=== PATIENT | male | born 1955 | race Two or more races ===

== ENCOUNTER 2023-01-30 04:10 | Day surgery (SDC) | payer OTHER ==
[2023-01-24 13:30] VITALS: BMI 29.6
[~2023-01-30 04:10] MED LIST: ACETAMINOPHEN 500 MG TABLET (FP) PO PRN
[2023-01-30] MEDS ORDERED: BUPIVACAINE HCL/PF 0.5% (5MG/ML) 10 ML VIAL NR ONE ×2 (13:04→13:06)
[2023-01-30 14:31] VITALS: BP 124/70; PULSE 72; RESP 17; TEMP 98.7
[2023-01-30] MEDS ORDERED: ACETAMINOPHEN 500 MG TABLET (FP) PO PRN (15:54)
== END 2023-01-30 13:50 | disposition home or self-care (01) ==
LOC: JASU-SURG 04:10
PROVIDERS: ATTEND Pain Medicine Pain Medicine
PROC: BR14YZZ Fluoroscopy of Cervical Facet Joint(s) using Other Contrast (ICD-10-PCS; 2023-01-30)
PROC: 3E0T3BZ Introduction of Anesthetic Agent into Peripheral Nerves and Plexi, Percutaneous Approach (ICD-10-PCS; principal; 2023-01-30 13:00)
DX: M47.812 Spondylosis without myelopathy or radiculopathy, cervical region (principal)
CPT/HCPCS: 76000-TC-FY

== ENCOUNTER 2023-02-23 03:54 | Day surgery (SDC) | payer OTHER ==
[2023-02-21 12:07] VITALS: BMI 29.6
[~2023-02-23 03:54] MED LIST changes: +LIDOCAINE HCL 1% PRESERVATIVE FREE - 30ML VIAL IJ ONE
[2023-02-23] MEDS ORDERED: LIDOCAINE HCL/PF 2% SDV 5ML VIAL ONE (07:14)
[2023-02-23] MEDS ORDERED: BUPIVACAINE HCL/PF 0.5% (5MG/ML) 10 ML VIAL ONE (07:17)
[2023-02-23] MEDS ORDERED: LIDOCAINE HCL/PF 1% SDV 5ML VIAL ONE (07:17)
[2023-02-23] MEDS ORDERED: LIDOCAINE HCL 1% PRESERVATIVE FREE - 30ML VIAL IJ ONE ×2 (08:15)
[2023-02-23 09:50] VITALS: BP 121/73; PULSE 70; RESP 17; TEMP 97.9
== END 2023-02-23 09:30 | disposition home or self-care (01) ==
LOC: JASU-SURG 03:54
PROVIDERS: ATTEND Pain Medicine Pain Medicine
PROC: 01HY3MZ Insertion of Neurostimulator Lead into Peripheral Nerve, Percutaneous Approach (ICD-10-PCS; principal; 2023-02-23 08:00)
DX: G89.4 Chronic pain syndrome (principal); M54.2 Cervicalgia
CPT/HCPCS: 64555; C1778; 76000-TC-FY

== ENCOUNTER 2023-03-27 04:13 | Day surgery (SDC) | payer OTHER ==
[2023-03-21 14:22] VITALS: BMI 29.5
[~2023-03-27 04:13] MED LIST changes: -ACETAMINOPHEN 500 MG TABLET (FP) PO PRN; -LIDOCAINE HCL 1% PRESERVATIVE FREE - 30ML VIAL IJ ONE; +LIDOCAINE HCL 1% PRESERVATIVE FREE - 30ML VIAL INF ONE
[2023-03-27] MEDS ORDERED: LIDOCAINE HCL/PF 1% SDV 5ML VIAL ONE (07:31)
[2023-03-27] MEDS ORDERED: LIDOCAINE HCL/PF 2% SDV 5ML VIAL ONE (07:43)
[2023-03-27] MEDS ORDERED: LIDOCAINE HCL 1% PRESERVATIVE FREE - 30ML VIAL INF ONE (09:41)
[2023-03-27 10:24] VITALS: RESP 18; TEMP 98.3
[2023-03-27 11:14] VITALS: BP 112/69; PULSE 73
[2023-03-27] MEDS ORDERED: ACETAMINOPHEN 500 MG TABLET (FP) PO PRN (13:11)
== END 2023-03-27 10:55 | disposition home or self-care (01) ==
LOC: JASU-SURG 04:13
PROVIDERS: ATTEND Pain Medicine Pain Medicine
PROC: 01HY3MZ Insertion of Neurostimulator Lead into Peripheral Nerve, Percutaneous Approach (ICD-10-PCS; principal; 2023-03-27 10:30)
DX: G89.4 Chronic pain syndrome (principal); M54.2 Cervicalgia
CPT/HCPCS: 64555; C1778; 76000-TC-FY

== ENCOUNTER 2023-04-28 06:15 | Inpatient (IN) | payer OTHER ==
[2023-04-28] MEDS ORDERED: SODIUM CHLORIDE 0.9% 500 ML INFUS.BAG IV ONE (07:26)
[2023-04-28 07:53] LABS: HEMATOCRIT 35.4 % (35.4-49); HEMOGLOBIN 11.2 GM/dL (11.7-16.9); MCH 28.1 pg (25.7-33.7); MCHC 31.6 g/dl (32.0-35.9); MEAN PLT VOLUME 8.3 fl (7.5-11.1); PLATELET COUNT 308 10^3/uL (134-434); RBC 3.98 M/mm3 (4.00-5.60); RDW 15.7 % (11.9-15.9); WHITE BLOOD COUNT 5.5 K/mm3 (4.0-10.0)
[2023-04-28 08:11] LABS: POTASSIUM 5.2 mmol/L (3.5-5.1)
[2023-04-28 08:12] LABS: INR 1.26 (0.83-1.09); PROTHROMBIN TIME (PATIENT) 14.6 SEC (9.7-13.0)
[2023-04-28 08:13] LABS: CALCIUM 8.7 mg/dL (8.5-10.1)
[2023-04-28 08:15] LABS: ACTIVATED PTT 28.7 SECONDS (25.2-36.5); ALBUMIN 3.4 g/dl (3.4-5.0); BLOOD UREA NITROGEN 77.1 mg/dL (7-18); VENOUS BASE EXCESS -9.5 mmol/L (-2-2); VENOUS O2 SATURATION 20.8 % (70-80); VENOUS PCO2 48.3 mmHg (38-52); VENOUS PH 7.205 (7.310-7.410)
[2023-04-28 08:17] LABS: CREATININE 4.1 mg/dL (0.55-1.3)
[2023-04-28 08:18] LABS: BILIRUBIN,TOTAL 0.6 mg/dL (0.2-1)
[2023-04-28 08:19] LABS: TOT PROT 6.5 g/dl (6.4-8.2)
[2023-04-28] MEDS ORDERED: CEFTRIAXONE 1,000 MG in DEXTROSE 5%-WATER - 50 ML IVPB ONE (08:51)
[2023-04-28 08:59] LABS: ANISOCYTOSIS 0; MACROCYTOSIS 0
[2023-04-28] MEDS ORDERED: CEFTRIAXONE 1 GM/50 ML BAG ONE (08:59)
[2023-04-28 09:01] LABS: EPI CELLS 30 /uL (0-25.1); HYALINE CASTS 8 /uL (0-3.1); PH,URINE 5.5 (5.0-8.0); URINE APPEARANCE TURBID; URINE BACTERIA >9,000 /uL (0-1359); URINE BILIRUBIN 1+ (NEGATIVE); URINE COLOR DK YELLOW; URINE GLUCOSE (UA) NEGATIVE (NEGATIVE); URINE KETONE NEGATIVE (NEGATIVE); URINE LEUK ESTERASE 3+ (NEGATIVE); URINE NITRITE POSITIVE (NEGATIVE); URINE PROTEIN 3+ (NEGATIVE); URINE WBC 32874 /uL (0-25.8)
[2023-04-28 10:47] LABS: URINE RBC 1102.7 /uL (0-23.9); YEAST NEGATIVE (NEGATIVE)
[2023-04-28 11:07] VITALS: BMI 31.5
[2023-04-28] MEDS ORDERED: INSULIN (NOVOLOG) ASPART 100 UNITS/ML 10ML VIAL ONE (12:48)
[2023-04-28] MEDS: SODIUM CHLORIDE 1,000 ML IV SCH (15:39)
[2023-04-28] MEDS: hydrALAZINE HCL 50 MG TABLET (FP) PO SCH (21:44)
[2023-04-28] MEDS: ROSUVASTATIN CA 10 MG TABLET PO SCH (21:44)
[2023-04-28] MEDS: NIFEdipine E.R 60 MG TABLET PO SCH (21:44)
[2023-04-28] MEDS: GABAPENTIN 300 MG CAPSULE PO SCH (21:44)
[2023-04-28] MEDS: HEPARIN NA (PORCINE) 5,000 UNITS/ML 1ML VIAL SQ SCH (21:45)
[2023-04-28] MEDS ORDERED: buPROPion HCL 100 MG TABLET PO SCH (22:00)
[2023-04-28] MEDS: MELATONIN 5 MG TABLETS PO PRN (23:20)
[2023-04-29] MEDS: hydrALAZINE HCL 50 MG TABLET (FP) PO SCH ×3 (06:21→22:28)
[2023-04-29] MEDS: GABAPENTIN 300 MG CAPSULE PO SCH ×3 (06:21→22:27)
[2023-04-29] MEDS ORDERED: TENOFOVIR DISOPROXIL FUMARATE 300 MG TABLET PO SCH (08:00)
[2023-04-29 08:59] LABS: HEMATOCRIT 31.5 % (35.4-49); HEMOGLOBIN 10.1 GM/dL (11.7-16.9); MCH 28.4 pg (25.7-33.7); MCHC 32.1 g/dl (32.0-35.9); MEAN CELL VOLUME 88.5 fl (80-96); MEAN PLT VOLUME 8.7 fl (7.5-11.1); PLATELET COUNT 257 10^3/uL (134-434); RBC 3.56 M/mm3 (4.00-5.60); RDW 15.6 % (11.9-15.9); WHITE BLOOD COUNT 4.7 K/mm3 (4.0-10.0)
[2023-04-29 09:12] LABS: POTASSIUM 4.9 mmol/L (3.5-5.1)
[2023-04-29 09:17] LABS: BLOOD UREA NITROGEN 60.8 mg/dL (7-18); CALCIUM 8.5 mg/dL (8.5-10.1)
[2023-04-29 09:18] LABS: ALBUMIN 3.2 g/dl (3.4-5.0)
[2023-04-29 09:21] LABS: CREATININE 2.6 mg/dL (0.55-1.3)
[2023-04-29 09:22] LABS: BILIRUBIN,TOTAL 0.4 mg/dL (0.2-1); TOT PROT 5.8 g/dl (6.4-8.2)
[2023-04-29] MEDS: ASPIRIN 81 MG CHEWABLE TABLETS PO SCH (09:58)
[2023-04-29] MEDS: buPROPion HCL 100 MG TABLET PO SCH (09:59)
[2023-04-29] MEDS: NEBIVOLOL 10 MG TABLET (FP) PO SCH (09:59)
[2023-04-29] MEDS: CEFTRIAXONE 1 GM in DEXTROSE 5%-WATER - 50 ML IVPB SCH (09:59)
[2023-04-29] MEDS: HEPARIN NA (PORCINE) 5,000 UNITS/ML 1ML VIAL SQ SCH ×2 (10:00→22:27)
[2023-04-29] MEDS ORDERED: POTASSIUM CHLORIDE TABS 20 MEQ TABLET.ER (FP) PO SCH (10:00)
[2023-04-29] MEDS ORDERED: IRBESARTAN 300 MG PO SCH (10:00)
[2023-04-29] MEDS: NIFEdipine E.R. 30 MG TABLET PO SCH (10:06)
[2023-04-29 10:14] LABS: ANISOCYTOSIS 0; MACROCYTOSIS 0
[2023-04-29] MEDS: ROSUVASTATIN CA 10 MG TABLET PO SCH (22:27)
[2023-04-29] MEDS: NIFEdipine E.R 60 MG TABLET PO SCH (22:28)
[2023-04-29] MEDS: MELATONIN 5 MG TABLETS PO PRN (22:53)
[2023-04-30] MEDS: SODIUM CHLORIDE 1,000 ML IV SCH (02:33)
[2023-04-30] MEDS: hydrALAZINE HCL 50 MG TABLET (FP) PO SCH ×3 (05:48→22:02)
[2023-04-30] MEDS: GABAPENTIN 300 MG CAPSULE PO SCH ×3 (05:49→22:02)
[2023-04-30 09:01] LABS: HEMATOCRIT 31.1 % (35.4-49); HEMOGLOBIN 9.9 GM/dL (11.7-16.9); MCH 28.5 pg (25.7-33.7); MCHC 31.7 g/dl (32.0-35.9); MEAN CELL VOLUME 90.1 fl (80-96); MEAN PLT VOLUME 8.7 fl (7.5-11.1); PLATELET COUNT 254 10^3/uL (134-434); RBC 3.46 M/mm3 (4.00-5.60); RDW 15.3 % (11.9-15.9); WHITE BLOOD COUNT 4.8 K/mm3 (4.0-10.0)
[2023-04-30 09:18] LABS: CALCIUM 8.5 mg/dL (8.5-10.1)
[2023-04-30 09:19] LABS: ALBUMIN 2.8 g/dl (3.4-5.0); BLOOD UREA NITROGEN 47.1 mg/dL (7-18)
[2023-04-30 09:24] LABS: BILIRUBIN,TOTAL 0.5 mg/dL (0.2-1); TOT PROT 5.6 g/dl (6.4-8.2)
[2023-04-30] MEDS: CEFTRIAXONE 1 GM in DEXTROSE 5%-WATER - 50 ML IVPB SCH (09:37)
[2023-04-30] MEDS: buPROPion HCL 100 MG TABLET PO SCH (09:39)
[2023-04-30] MEDS: NIFEdipine E.R. 30 MG TABLET PO SCH (09:39)
[2023-04-30] MEDS: NEBIVOLOL 10 MG TABLET (FP) PO SCH (09:39)
[2023-04-30] MEDS: ASPIRIN 81 MG CHEWABLE TABLETS PO SCH (09:39)
[2023-04-30] MEDS: HEPARIN NA (PORCINE) 5,000 UNITS/ML 1ML VIAL SQ SCH ×2 (09:39→22:02)
[2023-04-30 09:54] LABS: ANISOCYTOSIS 0; HELMET CELLS 0; HOWELL-JOLLY BODIES 0; MACROCYTOSIS 0; OVALOCYTE 0; ROULEAU 0; SICKELED CELLS 0; TARGET CELLS 0; TEAR DROP CELLS 0; TOXIC GRANULATION 0
[2023-04-30] MEDS: ERTAPENEM SODIUM 0.5 GM in SODIUM CHLORIDE 50 ML IVPB SCH (15:26)
[2023-04-30] MEDS: SODIUM CHLORIDE 0.45% 1,000 ML IV SCH (17:40)
[2023-04-30] MEDS: ROSUVASTATIN CA 10 MG TABLET PO SCH (22:02)
[2023-04-30] MEDS: NIFEdipine E.R 60 MG TABLET PO SCH (22:02)
[2023-04-30] MEDS: MELATONIN 5 MG TABLETS PO PRN (22:02)
[2023-05-01] MEDS: GABAPENTIN 300 MG CAPSULE PO SCH ×3 (05:20→22:12)
[2023-05-01] MEDS: hydrALAZINE HCL 50 MG TABLET (FP) PO SCH ×3 (05:20→22:12)
[2023-05-01 08:27] LABS: POTASSIUM 4.6 mmol/L (3.5-5.1)
[2023-05-01 08:29] LABS: ALBUMIN 2.8 g/dl (3.4-5.0); CALCIUM 8.6 mg/dL (8.5-10.1)
[2023-05-01 08:30] LABS: BLOOD UREA NITROGEN 40.1 mg/dL (7-18)
[2023-05-01 08:32] LABS: CREATININE 1.7 mg/dL (0.55-1.3)
[2023-05-01 08:34] LABS: BILIRUBIN,TOTAL 0.4 mg/dL (0.2-1); TOT PROT 5.5 g/dl (6.4-8.2)
[2023-05-01] MEDS: ASPIRIN 81 MG CHEWABLE TABLETS PO SCH (09:24)
[2023-05-01] MEDS: HEPARIN NA (PORCINE) 5,000 UNITS/ML 1ML VIAL SQ SCH ×2 (09:24→22:12)
[2023-05-01] MEDS: NIFEdipine E.R. 30 MG TABLET PO SCH (09:24)
[2023-05-01] MEDS: NEBIVOLOL 10 MG TABLET (FP) PO SCH (09:25)
[2023-05-01] MEDS: buPROPion HCL 100 MG TABLET PO SCH (09:25)
[2023-05-01] MEDS: ERTAPENEM SODIUM 0.5 GM in SODIUM CHLORIDE 50 ML IVPB SCH (09:41)
[2023-05-01] MEDS: SODIUM CHLORIDE 0.45% 1,000 ML IV SCH (13:44)
[2023-05-01] MEDS: MELATONIN 5 MG TABLETS PO PRN (22:11)
[2023-05-01] MEDS: ROSUVASTATIN CA 10 MG TABLET PO SCH (22:12)
[2023-05-01] MEDS: NIFEdipine E.R 60 MG TABLET PO SCH (22:12)
[2023-05-02] MEDS: hydrALAZINE HCL 50 MG TABLET (FP) PO SCH ×3 (06:29→21:56)
[2023-05-02] MEDS: GABAPENTIN 300 MG CAPSULE PO SCH ×3 (06:30→21:56)
[2023-05-02] MEDS: ASPIRIN 81 MG CHEWABLE TABLETS PO SCH (10:00)
[2023-05-02] MEDS: NIFEdipine E.R. 30 MG TABLET PO SCH (10:00)
[2023-05-02] MEDS: HEPARIN NA (PORCINE) 5,000 UNITS/ML 1ML VIAL SQ SCH ×2 (10:00→21:56)
[2023-05-02] MEDS: ERTAPENEM SODIUM 1 GM in SODIUM CHLORIDE 50 ML IVPB SCH (10:01)
[2023-05-02] MEDS: NEBIVOLOL 10 MG TABLET (FP) PO SCH (10:02)
[2023-05-02] MEDS: buPROPion HCL 100 MG TABLET PO SCH (10:02)
[2023-05-02] MEDS: NIFEdipine E.R 60 MG TABLET PO SCH (21:55)
[2023-05-02] MEDS: ROSUVASTATIN CA 10 MG TABLET PO SCH (21:56)
[2023-05-02] MEDS: MELATONIN 5 MG TABLETS PO PRN (22:01)
[2023-05-03] MEDS: GABAPENTIN 300 MG CAPSULE PO SCH ×3 (06:51→21:49)
[2023-05-03] MEDS: hydrALAZINE HCL 50 MG TABLET (FP) PO SCH ×3 (06:51→21:48)
[2023-05-03] MEDS: ASPIRIN 81 MG CHEWABLE TABLETS PO SCH (09:13)
[2023-05-03] MEDS: NEBIVOLOL 10 MG TABLET (FP) PO SCH (09:13)
[2023-05-03] MEDS: HEPARIN NA (PORCINE) 5,000 UNITS/ML 1ML VIAL SQ SCH ×2 (09:13→21:48)
[2023-05-03] MEDS: buPROPion HCL 100 MG TABLET PO SCH (09:13)
[2023-05-03] MEDS: NIFEdipine E.R. 30 MG TABLET PO SCH (09:13)
[2023-05-03 10:24] LABS: BASO % 15.7 % (0-2.0); EOS % 3.7 % (0-4.5); HEMATOCRIT 31.4 % (35.4-49); HEMOGLOBIN 9.9 GM/dL (11.7-16.9); LYMPH % 22.8 % (8-40); MCH 28.8 pg (25.7-33.7); MCHC 31.6 g/dl (32.0-35.9); MEAN CELL VOLUME 91.3 fl (80-96); MEAN PLT VOLUME 8.3 fl (7.5-11.1); NEUT % 45.8 % (42.8-82.8); PLATELET COUNT 284 10^3/uL (134-434); RBC 3.44 M/mm3 (4.00-5.60); RDW 15.9 % (11.9-15.9); WHITE BLOOD COUNT 5.1 K/mm3 (4.0-10.0)
[2023-05-03] MEDS: ERTAPENEM SODIUM 1 GM in SODIUM CHLORIDE 50 ML IVPB SCH (10:33)
[2023-05-03 11:08] LABS: POTASSIUM 4.2 mmol/L (3.5-5.1)
[2023-05-03 11:14] LABS: ERYTHROCYTE SEDIMENTATION RATE 39 mm/hr (0-20)
[2023-05-03 11:20] LABS: BLOOD UREA NITROGEN 30.7 mg/dL (7-18); CALCIUM 8.8 mg/dL (8.5-10.1)
[2023-05-03 11:21] LABS: ALBUMIN 3.2 g/dl (3.4-5.0)
[2023-05-03 11:24] LABS: CREATININE 1.4 mg/dL (0.55-1.3)
[2023-05-03 11:25] LABS: BILIRUBIN,TOTAL 0.4 mg/dL (0.2-1); TOT PROT 5.9 g/dl (6.4-8.2)
[2023-05-03 15:34] LABS: EPI CELLS 2 /uL (0-25.1); HYALINE CASTS 1 /uL (0-3.1); PH,URINE 5.5 (5.0-8.0); URINE APPEARANCE CLOUDY; URINE BACTERIA 93 /uL (0-1359); URINE BILIRUBIN NEGATIVE (NEGATIVE); URINE COLOR YELLOW; URINE GLUCOSE (UA) TRACE (NEGATIVE); URINE KETONE NEGATIVE (NEGATIVE); URINE LEUK ESTERASE 3+ (NEGATIVE); URINE NITRITE NEGATIVE (NEGATIVE); URINE PROTEIN 2+ (NEGATIVE); URINE RBC 33 /uL (0-23.9); URINE UROBILINOGEN 0.2 mg/dL (0.2-1.0); URINE WBC 2278 /uL (0-25.8)
[2023-05-03 18:09] LABS: ATYPICAL pANCA <1:20 titer (Neg:<1:20); C-ANCA <1:20 titer (Neg:<1:20)
[2023-05-03] MEDS: ROSUVASTATIN CA 10 MG TABLET PO SCH (21:49)
[2023-05-03] MEDS: NIFEdipine E.R 60 MG TABLET PO SCH (21:49)
[2023-05-03] MEDS: MELATONIN 5 MG TABLETS PO PRN (21:49)
[2023-05-04] MEDS: GABAPENTIN 300 MG CAPSULE PO SCH ×3 (06:02→22:39)
[2023-05-04] MEDS: hydrALAZINE HCL 50 MG TABLET (FP) PO SCH ×4 (06:02→22:40)
[2023-05-04] MEDS: ERTAPENEM SODIUM 1 GM in SODIUM CHLORIDE 50 ML IVPB SCH (10:35)
[2023-05-04] MEDS: buPROPion HCL 100 MG TABLET PO SCH (10:36)
[2023-05-04] MEDS: HEPARIN NA (PORCINE) 5,000 UNITS/ML 1ML VIAL SQ SCH ×2 (10:36→22:37)
[2023-05-04] MEDS: NEBIVOLOL 10 MG TABLET (FP) PO SCH (10:36)
[2023-05-04] MEDS: NIFEdipine E.R. 30 MG TABLET PO SCH (10:37)
[2023-05-04] MEDS: ASPIRIN 81 MG CHEWABLE TABLETS PO SCH (10:37)
[2023-05-04] MEDS: MEROPENEM 1 GM in DEXTROSE 5%-WATER 100 ML IVPB SCH (17:39)
[2023-05-04] MEDS: ROSUVASTATIN CA 10 MG TABLET PO SCH (22:39)
[2023-05-04] MEDS: NIFEdipine E.R 60 MG TABLET PO SCH (22:39)
[2023-05-04] MEDS: MELATONIN 5 MG TABLETS PO PRN (22:45)
[2023-05-05] MEDS: MEROPENEM 1 GM in DEXTROSE 5%-WATER 100 ML IVPB SCH ×3 (02:21→19:06)
[2023-05-05] MEDS: GABAPENTIN 300 MG CAPSULE PO SCH ×3 (06:47→23:29)
[2023-05-05] MEDS: hydrALAZINE HCL 50 MG TABLET (FP) PO SCH ×3 (06:47→23:28)
[2023-05-05 08:07] LABS: POTASSIUM 3.7 mmol/L (3.5-5.1)
[2023-05-05 08:14] LABS: CALCIUM 8.7 mg/dL (8.5-10.1)
[2023-05-05 08:15] LABS: BLOOD UREA NITROGEN 21.7 mg/dL (7-18)
[2023-05-05 08:18] LABS: CREATININE 1.3 mg/dL (0.55-1.3)
[2023-05-05 08:19] LABS: BILIRUBIN,TOTAL 0.4 mg/dL (0.2-1); TOT PROT 5.6 g/dl (6.4-8.2)
[2023-05-05] MEDS: HEPARIN NA (PORCINE) 5,000 UNITS/ML 1ML VIAL SQ SCH (09:53)
[2023-05-05] MEDS: ASPIRIN 81 MG CHEWABLE TABLETS PO SCH (09:53)
[2023-05-05] MEDS: NIFEdipine E.R. 30 MG TABLET PO SCH (09:53)
[2023-05-05] MEDS: buPROPion HCL 100 MG TABLET PO SCH (09:54)
[2023-05-05] MEDS: NEBIVOLOL 10 MG TABLET (FP) PO SCH (09:54)
[2023-05-05] MEDS: NIFEdipine E.R 60 MG TABLET PO SCH (23:29)
[2023-05-05] MEDS: ROSUVASTATIN CA 10 MG TABLET PO SCH (23:29)
[2023-05-05] MEDS: MELATONIN 5 MG TABLETS PO PRN (23:29)
[2023-05-06] MEDS: MEROPENEM 1 GM in DEXTROSE 5%-WATER 100 ML IVPB SCH ×3 (02:43→17:14)
[2023-05-06] MEDS: hydrALAZINE HCL 50 MG TABLET (FP) PO SCH ×3 (06:20→22:33)
[2023-05-06] MEDS: GABAPENTIN 300 MG CAPSULE PO SCH ×3 (06:20→22:33)
[2023-05-06 09:45] LABS: POTASSIUM 3.9 mmol/L (3.5-5.1)
[2023-05-06 09:51] LABS: CALCIUM 8.8 mg/dL (8.5-10.1)
[2023-05-06 09:52] LABS: ALBUMIN 3.3 g/dl (3.4-5.0); BLOOD UREA NITROGEN 20.1 mg/dL (7-18)
[2023-05-06 09:55] LABS: CREATININE 1.3 mg/dL (0.55-1.3)
[2023-05-06 09:56] LABS: BILIRUBIN,TOTAL 0.3 mg/dL (0.2-1)
[2023-05-06 10:39] LABS: HEMOGLOBIN 9.8 GM/dL (11.7-16.9); LYMPH % 23.3 % (8-40); MCH 28.8 pg (25.7-33.7); MCHC 31.7 g/dl (32.0-35.9); MEAN CELL VOLUME 90.7 fl (80-96); MEAN PLT VOLUME 7.1 fl (7.5-11.1); MONO % 9.4 % (3.8-10.2); NEUT % 62.3 % (42.8-82.8); PLATELET COUNT 250 10^3/uL (134-434); RBC 3.42 M/mm3 (4.00-5.60); WHITE BLOOD COUNT 4.9 K/mm3 (4.0-10.0)
[2023-05-06] MEDS: ASPIRIN 81 MG CHEWABLE TABLETS PO SCH (11:08)
[2023-05-06] MEDS: NIFEdipine E.R. 30 MG TABLET PO SCH (11:08)
[2023-05-06] MEDS: buPROPion HCL 100 MG TABLET PO SCH (11:10)
[2023-05-06] MEDS: NEBIVOLOL 10 MG TABLET (FP) PO SCH (11:11)
[2023-05-06] MEDS: TAMSULOSIN HCL 0.4 MG CAP PO SCH (11:38)
[2023-05-06] MEDS ORDERED: PHENAZOPYRIDINE HCL 100 MG TABLET (FP) PO ONE (12:00)
[2023-05-06] MEDS: HEPARIN NA (PORCINE) 5,000 UNITS/ML 1ML VIAL SQ SCH (22:33)
[2023-05-06] MEDS: NIFEdipine E.R 60 MG TABLET PO SCH (22:33)
[2023-05-06] MEDS: ROSUVASTATIN CA 10 MG TABLET PO SCH (22:33)
[2023-05-06] MEDS: MELATONIN 5 MG TABLETS PO PRN (22:43)
[2023-05-07] MEDS: MEROPENEM 1 GM in DEXTROSE 5%-WATER 100 ML IVPB SCH ×3 (02:22→18:15)
[2023-05-07] MEDS: GABAPENTIN 300 MG CAPSULE PO SCH ×3 (06:55→21:49)
[2023-05-07] MEDS: hydrALAZINE HCL 50 MG TABLET (FP) PO SCH ×3 (06:55→21:49)
[2023-05-07] MEDS: TAMSULOSIN HCL 0.4 MG CAP PO SCH (09:03)
[2023-05-07] MEDS: ASPIRIN 81 MG CHEWABLE TABLETS PO SCH (09:03)
[2023-05-07] MEDS: NIFEdipine E.R. 30 MG TABLET PO SCH (09:03)
[2023-05-07] MEDS: HEPARIN NA (PORCINE) 5,000 UNITS/ML 1ML VIAL SQ SCH ×2 (09:03→21:58)
[2023-05-07] MEDS: buPROPion HCL 100 MG TABLET PO SCH (09:04)
[2023-05-07] MEDS: NEBIVOLOL 10 MG TABLET (FP) PO SCH (09:04)
[2023-05-07] MEDS: LACTOBACILLUS ACIDOPHILUS 1 TABLET PO SCH (09:14)
[2023-05-07 09:25] LABS: HEMATOCRIT 28.4 % (35.4-49); HEMOGLOBIN 8.9 GM/dL (11.7-16.9); MCHC 31.5 g/dl (32.0-35.9); MEAN CELL VOLUME 92.3 fl (80-96); MEAN PLT VOLUME 8.5 fl (7.5-11.1); PLATELET COUNT 218 10^3/uL (134-434); RBC 3.08 M/mm3 (4.00-5.60); WHITE BLOOD COUNT 4.3 K/mm3 (4.0-10.0)
[2023-05-07 09:45] LABS: POTASSIUM 3.8 mmol/L (3.5-5.1)
[2023-05-07 09:52] LABS: BLOOD UREA NITROGEN 19.8 mg/dL (7-18)
[2023-05-07 09:54] LABS: CALCIUM 8.5 mg/dL (8.5-10.1)
[2023-05-07 09:56] LABS: CREATININE 1.3 mg/dL (0.55-1.3)
[2023-05-07] MEDS: NIFEdipine E.R 60 MG TABLET PO SCH (21:49)
[2023-05-07] MEDS: ROSUVASTATIN CA 10 MG TABLET PO SCH (21:49)
[2023-05-07 22:34] VITALS: TEMP 98.2
[2023-05-07] MEDS: MELATONIN 5 MG TABLETS PO PRN (23:02)
[2023-05-08] MEDS: MEROPENEM 1 GM in DEXTROSE 5%-WATER 100 ML IVPB SCH ×2 (01:27→09:24)
[2023-05-08] MEDS: hydrALAZINE HCL 50 MG TABLET (FP) PO SCH ×2 (05:08→13:35)
[2023-05-08] MEDS: GABAPENTIN 300 MG CAPSULE PO SCH ×2 (05:08→13:35)
[2023-05-08 06:25] VITALS: BP 100/42; PULSE 76; RESP 16
[2023-05-08] MEDS: ASPIRIN 81 MG CHEWABLE TABLETS PO SCH (09:22)
[2023-05-08] MEDS: LACTOBACILLUS ACIDOPHILUS 1 TABLET PO SCH (09:22)
[2023-05-08] MEDS: TAMSULOSIN HCL 0.4 MG CAP PO SCH (09:22)
[2023-05-08] MEDS: buPROPion HCL 100 MG TABLET PO SCH (09:23)
[2023-05-08] MEDS: NEBIVOLOL 10 MG TABLET (FP) PO SCH (09:23)
[2023-05-08] MEDS: NIFEdipine E.R. 30 MG TABLET PO SCH (09:23)
[2023-05-08] MEDS: HEPARIN NA (PORCINE) 5,000 UNITS/ML 1ML VIAL SQ SCH (09:25)
[2023-05-08] MEDS ORDERED: DOXYCYCLINE HYCLATE 100 MG CAPSULE PO SCH (18:00)
== END 2023-05-08 14:46 | disposition home or self-care (01) | DRG 690 ==
LOC: JER 06:15 → JERBED 08:51 → J8W 10:53
PROVIDERS: ADMIT Specialist; ATTEND Specialist
DX: N39.0 Urinary tract infection, site not specified (principal); B18.1 Chronic viral hepatitis B without delta-agent; C85.90 Non-Hodgkin lymphoma, unspecified, unspecified site; N17.9 Acute kidney failure, unspecified; E87.0 Hyperosmolality and hypernatremia; M45.9 Ankylosing spondylitis of unspecified sites in spine; I12.9 Hypertensive chronic kidney disease with stage 1 through stage 4 chronic kidney disease, or unspecified chronic kidney disease; N18.9 Chronic kidney disease, unspecified; E78.5 Hyperlipidemia, unspecified; I10 Essential (primary) hypertension; D64.9 Anemia, unspecified; N32.0 Bladder-neck obstruction; N40.1 Benign prostatic hyperplasia with lower urinary tract symptoms
CPT/HCPCS: 0241U-QW; 36415; 71045-TC-FY; 76775-TC; 76856-TC; 80048; 80053; 81003; 82570; 82607; 82728; 82803; 83520; 83540; 83605; 84300; 84484; 85025; 85610; 85651; 85730; 86038; 86160; 86256; 86850; 86900; 86901; 87040; 87086; 87186; 87340; 87517; 93005; 93010; 99285-25; J1644

== ENCOUNTER 2024-01-24 05:17 | Day surgery (SDC) | payer OTHER ==
[2024-01-22 10:24] VITALS: BMI 31.1
[2024-01-24] MEDS ORDERED: LIDOCAINE VISCOUS 2% ORAL/TOP 15 ML UNIT-DOSE CUP ONE (11:13)
[2024-01-24] MEDS: LIDOCAINE VISCOUS 2% ORAL/TOP 100 ML BOTTLE MM ONE (11:15)
[2024-01-24 12:01] VITALS: TEMP 98
[2024-01-24 12:38] VITALS: BP 119/62; PULSE 80; RESP 14
== END 2024-01-24 13:04 | disposition home or self-care (01) ==
LOC: JASU-ENDO 05:17
PROVIDERS: ATTEND Internal Medicine Gastroenterology
PROC: 0DB58ZX Excision of Esophagus, Via Natural or Artificial Opening Endoscopic, Diagnostic (ICD-10-PCS; 2024-01-24)
PROC: 0DB78ZX Excision of Stomach, Pylorus, Via Natural or Artificial Opening Endoscopic, Diagnostic (ICD-10-PCS; 2024-01-24)
PROC: 0DB68ZX Excision of Stomach, Via Natural or Artificial Opening Endoscopic, Diagnostic (ICD-10-PCS; 2024-01-24)
PROC: 0DJD8ZZ Inspection of Lower Intestinal Tract, Via Natural or Artificial Opening Endoscopic (ICD-10-PCS; principal; 2024-01-24 11:00)
DX: Z12.11 Encounter for screening for malignant neoplasm of colon (principal); K29.50 Unspecified chronic gastritis without bleeding; K21.00 Gastro-esophageal reflux disease with esophagitis, without bleeding
CPT/HCPCS: 43239; G0121; 88305-TC; 88342-TC

== ENCOUNTER 2024-02-05 04:46 | Day surgery (SDC) | payer OTHER ==
[2024-02-04 11:46] VITALS: BMI 30.8
[2024-02-05] MEDS ORDERED: TRIAMCINOLONE ACET 40MG/1ML VIAL ONE (07:27)
[2024-02-05] MEDS ORDERED: LIDOCAINE HCL/PF 1% SDV 5ML VIAL ONE ×2 (07:28→07:29)
[2024-02-05] MEDS ORDERED: BUPIVACAINE HCL/PF 0.5% (5MG/ML) 10 ML VIAL ONE (07:28)
[2024-02-05] MEDS ORDERED: ACETAMINOPHEN 500 MG TABLET (FP) PO PRN (09:58)
[2024-02-05 11:15] VITALS: RESP 16
[2024-02-05] MEDS: LIDOCAINE HCL 1% PRESERVATIVE FREE - 30ML VIAL IJ ONE ×5 (14:22→14:38)
[2024-02-05] MEDS ORDERED: MIDAZOLAM HCL 2 MG/2 ML SINGLE DOSE VIAL ONE (14:24)
[2024-02-05] MEDS: ceFAZolin SODIUM 1 GM VIAL IVPB ONE ×2 (14:26→14:38)
[2024-02-05] MEDS ORDERED: FENTANYL CITRATE/PF 50 MCG/ML VIAL ONE ×2 (14:30→15:15)
[2024-02-05] MEDS ORDERED: LIDOCAINE HCL/PF 2% SDV 5ML VIAL ONE ×2 (14:31→15:57)
[2024-02-05] MEDS: LIDOCAINE HCL/PF 2% SDV 5ML VIAL INF ONE ×4 (15:30)
[2024-02-05 17:00] VITALS: BP 120/57; PULSE 67; TEMP 98.7
== END 2024-02-05 18:00 | disposition home or self-care (01) ==
LOC: JASU-SURG 04:46
PROVIDERS: ATTEND Pain Medicine Pain Medicine
PROC: 00HU3MZ Insertion of Neurostimulator Lead into Spinal Canal, Percutaneous Approach (ICD-10-PCS; principal; 2024-02-05 13:45)
DX: M96.1 Postlaminectomy syndrome, not elsewhere classified (principal); Z53.8 Procedure and treatment not carried out for other reasons
CPT/HCPCS: 63650; C1897; 76000-TC-FY; C1778

== ENCOUNTER 2024-08-26 04:19 | Day surgery (SDC) | payer OTHER ==
[2024-08-22 15:43] VITALS: BMI 30.1
[2024-08-26] MEDS ORDERED: ONDANSETRON 4 MG/2 ML VIAL IVPUSH PRN (13:51)
[2024-08-26] MEDS ORDERED: oxyCODONE HCL 5 MG TABLET PO PRN ×2 (13:51→18:26)
[2024-08-26] MEDS ORDERED: PROMETHAZINE HCL 25 MG/1 ML VIAL IVPB PRN (13:51)
[2024-08-26] MEDS ORDERED: LACTATED RINGERS SOLUTION 1,000 ML IV SCH (14:00)
[2024-08-26] MEDS: GENTAMICIN SO4 80 MG/2 ML VIAL IVPB ONE ×2 (14:18→14:45)
[2024-08-26] MEDS ORDERED: LIDOCAINE HCL/PF 2% SDV 5ML VIAL ONE (14:24)
[2024-08-26] MEDS ORDERED: PROPOFOL 40 ML ONE (14:26)
[2024-08-26] MEDS ORDERED: DEXAMETHASONE SOD PHOSPHATE 4 MG/1 ML VIAL ONE (14:28)
[2024-08-26] MEDS: VANCOMYCIN 1,000 MG VIAL (RESTRICTED TO ID ONLY) IVPB ONE ×4 (14:28→17:30)
[2024-08-26] MEDS ORDERED: ONDANSETRON 4 MG/2 ML VIAL ONE (14:30)
[2024-08-26] MEDS ORDERED: GENTAMICIN SO4 80 MG/2 ML VIAL ONE ×3 (14:37→16:22)
[2024-08-26] MEDS ORDERED: MIDAZOLAM HCL 2 MG/2 ML SINGLE DOSE VIAL ONE (16:03)
[2024-08-26] MEDS ORDERED: VANCOMYCIN 1,000 MG VIAL (RESTRICTED TO ID ONLY) ONE (16:06)
[2024-08-26] MEDS ORDERED: DEXTROSE 5% IVPB ONE (16:30)
[2024-08-26] MEDS ORDERED: WATER IVPB ONE (16:30)
[2024-08-26] MEDS ORDERED: AMPHOTERICIN B LIPOSOMAL IVPB ONE (16:30)
[2024-08-26] MEDS: ceFAZolin SODIUM 1 GM VIAL IVPB ONE (16:45)
[2024-08-26] MEDS: LIDOCAINE HCL 1%, 10 MG/ML (20ML VIAL) INF ONE ×2 (17:10→18:03)
[2024-08-26] MEDS ORDERED: LIDOCAINE HCL 1%, 10 MG/ML (20ML VIAL) ONE (17:50)
[2024-08-26] MEDS ORDERED: traMADol HCL 50 MG TABLET PO PRN (17:56)
[2024-08-26] MEDS ORDERED: ACETAMINOPHEN 325 MG TABLET (FP) PO SCH (18:30)
[2024-08-26] MEDS ORDERED: buPROPion HCL 100 MG TABLET PO SCH (20:00)
[2024-08-26] MEDS: GABAPENTIN 300 MG CAPSULE PO SCH (21:31)
[2024-08-26] MEDS: hydrALAZINE HCL 50 MG TABLET (FP) PO SCH (21:31)
[2024-08-26 23:25] VITALS: BP 142/66; PULSE 82; RESP 17; TEMP 97.7
[2024-08-27] MEDS ORDERED: TAMSULOSIN HCL 0.4 MG CAP PO SCH (08:30)
[2024-08-27] MEDS ORDERED: POTASSIUM CHLORIDE TABS 20 MEQ TABLET.ER (FP) PO SCH (10:00)
[2024-08-27] MEDS ORDERED: PATIENT'S OWN MEDICATION (NON-FORMULARY) (Famotidine [Pepcid] 40 MG Tablet) PO SCH (10:00)
[2024-08-27] MEDS ORDERED: NIFEdipine E.R 60 MG TABLET PO SCH (10:00)
[2024-08-27] MEDS ORDERED: EZETIMIBE 10 MG TABLET (FP) PO SCH (10:00)
[2024-08-27] MEDS ORDERED: FEBUXOSTAT 80 MG TAB PO SCH (10:00)
[2024-08-27] MEDS ORDERED: TENOFOVIR DISOPROXIL FUMARATE 300 MG TABLET PO SCH (10:00)
[2024-08-27] MEDS ORDERED: NEBIVOLOL 10 MG TABLET (FP) PO SCH (10:00)
== END 2024-08-26 23:47 | disposition home or self-care (01) ==
LOC: JASUSAT 04:19 → JASU-SURG 04:19 → J8W 19:56 → JASUSAT 23:47
PROVIDERS: ATTEND Internal Medicine
PROC: 0VUS0JZ Supplement Penis with Synthetic Substitute, Open Approach (ICD-10-PCS; principal; 2024-08-26 14:30)
DX: N52.2 Drug-induced erectile dysfunction (principal)
CPT/HCPCS: 54405; C1813; 94760; C2622